=== PATIENT | female | born 1970 | race Asian ===

== ENCOUNTER → 2024-01-16 12:47 | Outpatient (REF) | payer OTHER, SELFPAY | LOC: HWRAD 12:47 | PROVIDERS: ATTENDING PHYSICIAN Family Medicine | DX: E04.1 Nontoxic single thyroid nodule (principal) | CPT/HCPCS: 76536 ==

== ENCOUNTER → 2024-02-02 16:27 | Outpatient (REF) | payer OTHER, SELFPAY | LOC: MRI 3T 16:27 | PROVIDERS: ATTENDING PHYSICIAN Obstetrics & Gynecology; FAMILY PHYSICIAN Family Medicine | DX: Z91.89 Other specified personal risk factors, not elsewhere classified (principal) | CPT/HCPCS: 77049; A9585 ==

== ENCOUNTER → 2024-02-20 14:00 | Outpatient (REF) | payer OTHER, SELFPAY | LOC: WDC 14:00 | PROVIDERS: ATTENDING PHYSICIAN Obstetrics & Gynecology; FAMILY PHYSICIAN Family Medicine | DX: R92.8 Other abnormal and inconclusive findings on diagnostic imaging of breast (principal) | CPT/HCPCS: 76642 ==

== ENCOUNTER → 2024-09-27 14:50 | Outpatient (REF) | payer OTHER, SELFPAY | LOC: RCS 14:50 | PROVIDERS: ATTENDING PHYSICIAN Family Medicine | DX: I51.7 Cardiomegaly (principal); R00.2 Palpitations | CPT/HCPCS: 93306 ==

== ENCOUNTER → 2024-09-29 08:46 | Outpatient (REF) | payer OTHER, SELFPAY | LOC: WDC 08:46 | PROVIDERS: ATTENDING PHYSICIAN Family Medicine | DX: R00.2 Palpitations (principal); R92.8 Other abnormal and inconclusive findings on diagnostic imaging of breast | CPT/HCPCS: 76642; 93225; 93226 ==

== ENCOUNTER → 2025-04-05 11:04 | Outpatient (REF) | payer OTHER, SELFPAY | LOC: WDC 11:04 | PROVIDERS: ATTENDING PHYSICIAN Obstetrics & Gynecology; FAMILY PHYSICIAN Family Medicine | DX: R92.333 Mammographic heterogeneous density, bilateral breasts (principal) | CPT/HCPCS: 76641 ==

== ENCOUNTER → 2025-04-07 16:46 | Outpatient (REF) | payer OTHER, SELFPAY | LOC: WDC 16:46 | PROVIDERS: ATTENDING PHYSICIAN Obstetrics & Gynecology; FAMILY PHYSICIAN Family Medicine | DX: Z12.31 Encounter for screening mammogram for malignant neoplasm of breast (principal); Z80.3 Family history of malignant neoplasm of breast; Z91.89 Other specified personal risk factors, not elsewhere classified | CPT/HCPCS: 77063; 77067 ==